=== PATIENT | female | born 1940 | race African-American/Black ===

== ENCOUNTER → 2023-11-14 | Day surgery (SDC) | payer MEDICARE, OTHER ==
[2023-11-07 12:49] LABS: BASOPHILS % 0.3 % (0.0-1.0); EOSINOPHILS # (AUTO) 0.2 (0.0-0.4); EOSINOPHILS % 2.2 % (0.0-6.0); HEMATOCRIT 39.6 % (34.2-44.1); HEMOGLOBIN 12.7 g/dL (12.0-16.0); LYMPHOCYTES # (AUTO) 2.3 (1.0-3.2); LYMPHOCYTES % 25.9 % (18.0-39.1); MEAN CORPUSCULAR HEMOGLOBIN 29.9 pg (28-32); MEAN CORPUSCULAR HGB CONC 32.1 g/dL (31-35); MEAN CORPUSCULAR VOLUME 93.2 fL (81-99); MONOCYTES # (AUTO) 0.6 (0.2-0.8); MONOCYTES % 6.7 % (4.4-11.3); NEUTROPHILS # (AUTO) 5.8 (2.1-6.9); NEUTROPHILS % 64.5 % (38.7-80.0); PLATELET COUNT 148 x10e3/uL (140-360); RED BLOOD COUNT 4.25 x10e6/uL (3.6-5.1); RED CELL DISTRIBUTION WIDTH 14.4 % (11.7-14.4); WHITE BLOOD COUNT 9.02 x10e3/uL (4.8-10.8)
[2023-11-07 13:18] LABS: ANION GAP 13.4 mmol/L (8-16); CALCIUM 9.9 mg/dL (8.4-10.2); CREATININE, SERUM 1.23 mg/dL (0.57-1.11); POTASSIUM 4.4 mmol/L (3.5-5.1)
[~2023-11-14] MED LIST: ALENDRONATE SOD70 MG PO; ALLEGRA ALLERGY60 MG PO; AMLODIPINE BESY10 MG PO; ATORVASTATIN CA20 MG PO; BUPIVACAINE HCL 0.5% 10ML MPF VIAL INJ ONE; CLOTRIMAZOLE15 GM TOP; FAMOTIDINE 20 MG/2 ML VIAL IV ONE; FENTANYL CITRATE/PF 100MCG/2 ML INJ ONE; FEROSUL325 MG PO; FLONASE ALLERG9.9 ML INH; HYDROCODON-ACE1 EA12 PO; JANUVIA25 MG PO; LIDOCAINE HCL 2% LOCAL INJ 5 ML SDV VIAL INJ ONE; MUPIROCIN 2% OINT 22 GM TUBE ONE; ONDANSETRON HCL INJ 2MG/ML 2ML 2 MG/ML VIAL ONE; OS-CAL 500+D T1 EACH PO; PANTOPRAZOLE SO40 MG PO; PLAVIX75 MG PO; PROPOFOL IV EMULSION 10 MG/ML 20 ML VIAL ONE; SERTRALINE HCL50 MG PO; SEVOFLURANE INHAL SOLN 250 ML PEN BTL ONE; ZESTRIL10 MG PO; ZETIA10 MG PO
[2023-11-14] MEDS: LACTATED RINGER'S 1,000 ML ONE (05:55)
[2023-11-14] MEDS: CLINDAMYCIN 600MG / 50ML 50 ML IV ONE (05:55)
[2023-11-14 07:25] VITALS: TEMP 97.3
[2023-11-14 08:10] VITALS: BP 149/69; PULSE 74; RESP 15; O2SAT 98
== END | disposition home or self-care (01) ==
LOC: OR 05:12
PROVIDERS: ATTEND Plastic Surgery
DX: G56.01 Carpal tunnel syndrome, right upper limb (principal); M65.841 Other synovitis and tenosynovitis, right hand; I10 Essential (primary) hypertension; E11.9 Type 2 diabetes mellitus without complications; F32.A Depression, unspecified; K21.9 Gastro-esophageal reflux disease without esophagitis; Z88.0 Allergy status to penicillin; Z88.6 Allergy status to analgesic agent; Z91.041 Radiographic dye allergy status; Z01.810 Encounter for preprocedural cardiovascular examination; Z01.812 Encounter for preprocedural laboratory examination; Z01.818 Encounter for other preprocedural examination; Z79.02 Long term (current) use of antithrombotics/antiplatelets; Z79.84 Long term (current) use of oral hypoglycemic drugs; Z79.899 Other long term (current) drug therapy; Z85.3 Personal history of malignant neoplasm of breast
CPT/HCPCS: 25115; 36415; 71046; 80048; 85025; 93005; J2001; J2405; J2704; J3010; J7121